=== PATIENT | male | born 2000 | race Caucasian/White ===

== ENCOUNTER 2021-06-10 15:28 | Emergency (ER) | payer BC, SELFPAY ==
--- NOTE | ~2021-06-10 | XR_ITS ---
XR chest 2V DATE: 06/10/2021 16:00 INDICATION: Shortness of breath, wheezing, cough for 3 weeks. History of asthma as a child. Smoker. TECHNIQUE: PA and lateral views COMPARISON: None FINDINGS: Normal heart size. Moderate bilateral hyperinflation. No pulmonary infiltrate or consolidation, pleural effusion or pulm onary vascular congestion or pneumothorax. Included skeletal structures are unremarkable. IMPRESSION: Moderate bilateral hyperinflation Reviewed, dictated and finalized at location A.
[2021-06-10 15:35] VITALS: BP 144/68; PULSE 101; RESP 12; TEMP 37.1; O2SAT 98
--- NOTE | 2021-06-10 15:35 | ED.URI ---
HPI - URI/Sore Throat General Chief Complaint: Upper Respiratory Infection Stated Complaint: breathing issues/congestion Time Seen by Provider: 06/10/21 15:36 Source: patient and RN notes reviewed Mode of arrival: ambulatory Limitations: no limitations History of Present Illness HPI Narrative: 21-year-old male presents to the [facility] with complaints of dry cough, wheezing, chest congestion for 2 to 3 weeks. Has a history of depression anxiety. Denies fevers. No chest pain or abdominal pain. No nausea vomiting or diarrhea. Related Data Home Medications Medication Instructions Recorded Confirmed bupropion HCl 150 mg PO QAM 06/10/21 06/10/21 cholecalciferol (vitamin D3) 25 mcg PO DAILY 06/10/21 06/10/21 [Vitamin D3] escitalopram oxalate mg 06/10/21 Allergies Allergy/AdvReac Type Severity Reaction Status Date / Time No Known Allergies Allergy Verified 06/10/21 15:37 Review of Systems Review of Systems: All systems reviewed & are unremarkable except as noted in HPI and below Constitutional: Constitutional: Reports no additional constitutional complaints, Denies chills and Denies fever(s) Eyes: Eyes: Reports no additional eye complaints ENT: Reports system reviewed and no additional complaints, except as documented Cardiovascular: Cardiovascular: Reports no additional cardiovascular complaints and Denies chest pain Respiratory: Respiratory: Reports as per HPI and Reports dyspnea Gastrointestinal: Gastrointestinal: Reports no additional gastrointestinal complaints, Denies abdominal pain, Denies diarrhea, Denies nausea and Denies vomiting Musculoskeletal: Musculoskeletal: Reports no additional musculoskeletal complaints and Denies back pain Integumentary/Breasts: Skin/Breast: Reports system reviewed and no additional complaints, except as docu Neurologic: Reports system reviewed and no additional complaints, except as documented Psychiatric: Psychiatric: Reports no additional psychiatric complaints Allergic/Immunologic: Allergic/Immunologic: Reports no additional allergic/immunologic complaints PMFSH Past Medical History Medical History (Updated 06/10/21 @ 16:32 by Charley Deal) Anxiety Surgical History Surgical History (Updated 06/10/21 @ 16:32 by Charley Deal) No significant past surgical history Comments At the time of my signature, I reviewed and agree with the nursing past medical, surgical, social, and family history. There is no relevant family history pertinent to the patient complaint. Exam Const: General: healthy appearing, no acute distress and alert Nutritional Appearance: well nourished Orientation/consciousness: patient oriented x3 Limitations: no limitations HENMT: Head: normal to inspection Eyes: Conjunctivae: conjunctivae normal Pupils: Equal, round and reactive pupils present Neck: Neck: normal visual inspection, no lymphadenopathy and no meningeal signs Chest: Chest palpation & inspection: normal inspection of the chest Resp: Effort & Inspection: normal respiratory effort Auscultation: rhonchi lower bilaterally and wheezes throughout Cardio: Rate: regular rate Rhythm: regular rhythm Back/Spine/Pelvis: Back: no CVA tenderness Skin: General skin exam: normal color Rashes: no rashes Wounds: no wounds Neuro: General: patient oriented x3, moves all extremities, no meningeal signs and no focal motor deficits Speech: normal speech Gait exam (Neuro): Normal gait present Extrem: General: normal to inspection and no pedal edema Psych: Appearance: grossly normal and well kempt Mental Status: mental status grossly normal Affect: normal affect Attitude: cooperative Thought content: Yes Normal thought content present Course Course Emergency Course: 1628 post breathing treatment. Patient states that he is feeling much better. Coarseness cleared, mild wheezing still noted, greatly decreased Discharge instructions reviewed with patient, as well as provi
[2021-06-10 15:39] VITALS: BP 144/68; PULSE 101; RESP 12; TEMP 37.1; O2SAT 98
[2021-06-10 15:42] VITALS: PULSE 74; RESP 18; O2SAT 97
[2021-06-10] MEDS: ALBUTEROL SULFATE NEB 2.5 MG/3 ML INH INHALATION (15:57)
[2021-06-10] MEDS: predniSONE 20 MG TABLET 40 MG PO (15:58)
[2021-06-10] MEDS: IPRATROPIUM BR 0.02% INH SOLN 0.5 MG/2.5 ML VIAL INHALATION (15:58)
[2021-06-10 16:40] VITALS: PULSE 74; RESP 16; O2SAT 96
== END 2021-06-10 16:40 | disposition home or self-care (01) ==
PROVIDERS: Emergency Provider Nurse Practitioner
DX: J40 Bronchitis, not specified as acute or chronic (principal); F41.9 Anxiety disorder, unspecified
CPT/HCPCS: 71046; 94640; 99213; G0463; J7512

== ENCOUNTER 2023-07-19 12:44 | Emergency (ER) | payer OTHER, SELFPAY ==
[2023-07-19 13:08] VITALS: BP 134/76; PULSE 103; RESP 16; TEMP 36.8; O2SAT 100
--- NOTE | 2023-07-19 13:43 | ED.ABDPAIN ---
HPI - Abdominal Pain General Chief Complaint: Abdominal Pain Stated Complaint: LOWER R ABD PAIN Time Seen by Provider: 07/19/23 13:37 Source: patient and RN notes reviewed Mode of arrival: ambulatory Limitations: no limitations History of Present Illness HPI narrative: Patient presents today complaining of right lower quadrant abdominal pain radiating to the periumbilical area since this morning with associated nausea. Denies vomiting, fever, diarrhea, or any additional symptoms. He currently rates his pain 5/10 and has tried no [id number] interventions prior to arrival. Related Data Home Medications Medication Instructions Recorded Confirmed No Home Medications 06/19/23 07/19/23 Allergies Allergy/AdvReac Type Severity Reaction Status Date / Time No Known Allergies Allergy Verified 07/19/23 13:07 Review of Systems Review of Systems: CONSTITUTIONAL: Denies body aches, fever, chills, or sweats. EYES: Denies visual changes, redness, or discharge. ENT: Denies rhinorrhea, congestion, sore throat, or otalgia. CARDIOVASCULAR: Denies chest pain, palpitations, or edema. RESPIRATORY: Denies cough or dyspnea. GASTROINTESTINAL: Denies vomiting, or diarrhea.+ abdominal pain, nausea GENITOURINARY: Denies dysuria or hematuria. SKIN: Denies rash, itching, or wounds. MUSCULOSKELETAL: Denies back pain, joint pain, or myalgia. NEUROLOGIC: Denies headache, numbness, tingling, or weakness. PSYCH: Denies depression or anxiety. [facility] Past Medical History Medical History Anxiety Rectal itching Surgical History Surgical History Hx of tonsillectomy No significant past surgical history Family History Family History Grandparent Cancer Mother Depression Grandparent Diabetes mellitus Social History Social History Smoking packs per day: 2 Smoking cigarettes per day: 40.0 Smoking status: Current every day smoker Tobacco type: cigarettes Smokeless tobacco user: chewing tobacco Alcohol intake: current Alcohol use details: once a month Substance use: current Substance use type: marijuana Other substance usage details: daily Lack of Transportation: No Lack of Food: Never True Current Housing: I Have Housing Concerned About Future Housing: No Difficulty Paying Gas/Electric Bills: No Difficulty Paying for Meds: No Currently Unemployed: No Education: Bachelor's Degree Difficulty w/ Childcare or Family Care: No Living arrangements: alone Spiritual care concerns: No Comments At time of signature, I have reviewed and agree with nursing past medical, surgical, social and family history unless otherwise noted. Please see nursing chart for further information. There is no relevant family history pertinent to the presenting complaint Exam Narrative: GENERAL: Well-appearing, well-nourished, and in no acute distress. HEAD: Normocephalic, atraumatic. EYES: EOMI. No redness or drainage. Conjunctivae normal. ENT: Mucous membranes pink and moist. NECK: Normal AROM. CHEST: No respiratory distress. Clear to auscultation. HEART: Regular rate and rhythm. No murmur appreciated. Normal peripheral pulses. ABDOMEN: Soft, nondistended, normal active bowel sounds. Right lower quadrant tenderness with guarding.+ heel jar EXTREMITIES: Normal range of motion. No edema. SKIN: Warm, dry, no rash. Capillary refill normal. Normal skin turgor. NEURO: No focal deficits. Alert and oriented x3. Gait steady. PSYCH: Normal affect. No signs of depression or anxiety. Course Course Level of Care: Express Care Visit Vital Signs Vital signs: Vital Signs Temperature 98.3 F 07/19/23 13:08 Pulse Rate 103 H 07/19/23 13:08 Respiratory Rate 16
== END 2023-07-19 13:50 | disposition short-term general hospital (02) ==
PROVIDERS: Emergency Provider Nurse Practitioner; PCP Clinical Nurse Specialist
DX: R10.31 Right lower quadrant pain (principal); F17.210 Nicotine dependence, cigarettes, uncomplicated
CPT/HCPCS: 96372; 99214; G0463; J1170; J2250; J3010

== ENCOUNTER 2023-07-19 14:41 | Day surgery (SDC) | payer OTHER, SELFPAY ==
[2023-07-19] VITALS (10 sets, daily range): BP systolic 117–155; BP diastolic 61–78; PULSE 61–95; RESP 12–24; TEMP 36.5–36.7; O2SAT 96–100
--- NOTE | ~2023-07-19 | CT_ITS ---
EXAMINATION: CT abdomen pelvis w con DATE: 07/19/2023 15:59 INDICATION: Right lower quadrant abdominal pain. TECHNIQUE: Computed tomography (CT) of the abdomen and pelvis was performed with 100 mL Omnipaque 350 intravenous contrast. Automated exposure control and iterative reconstruction technique were employe d. The dose-length product was 1133.06 mGy-cm. 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 No pleural effusion. The heart size is normal. No pericardial effusion. The live r, gallbladder, spleen, pancreas, adrenal glands, and kidneys are normal. There is an appendicolith i n the base of the appendix. The appendix is fluid-filled and dilated to 13 mm. There is fat stranding around the appendix. There are no pathologically enlarged lymph nodes. There is no free intraperiton eal fluid. There is mild thoracic and lumbar spondylosis. IMPRESSION: 1. Acute appendicitis. Reviewed, dictated and finalized at location E. IMPRESSION: 1. Acute appendicitis.
[2023-07-19] MEDS: SODIUM CHLORIDE 0.9% IV 1,000 ML 999 ML IV CONT (15:17)
[2023-07-19] MEDS: KETOROLAC 30 MG/ML VIAL (*BKC) IV PUSH (15:18)
[2023-07-19] MEDS: ONDANSETRON INJ 4 MG/2 ML VIAL IV PUSH (15:18)
[2023-07-19 15:24] LABS: Basophils Absolute Auto 0.1 K/mm3 (0.0-0.1); Basophils Percent Auto 0.4 % (0.2-1.2); Eosinophils Percent Auto 0.2 % (0-4.4); Hematocrit 48.2 % (42.0-52.0); Hemoglobin 16.1 g/dL (14.0-18.0); Immature Granulocyte Absolute 0.03 K/mm3 (0.00-0.031); Immature Granulocyte Percent A 0.2 % (0-0.5); Lymphocytes Absolute Auto 1.47 K/mm3 (0.9-3.2); Mean Corpuscular HGB Conc 33.4 g/dl (32-36); Mean Corpuscular Hemoglobin 29.8 pg (26-34); Mean Corpuscular Volume 89.3 fl (80-100); Mean Platelet Volume 10.8 fl (7.4-10.4); Monocytes Absolute Auto 0.6 K/mm3 (0.1-0.6); Monocytes Percent Auto 4.8 % (2.6-8.5); Neutrophils Absolute Auto 10.1 K/mm3 (1.3-6.7); Neutrophils Percent Auto 82.4 % (45.5-73.1); Platelet Count Result 203 k/mm3 (150-375); Red Cell Distribution Width 12.1 % (11.5-14.5); White Blood Count 12.3 K/mm3 (4.5-10.0)
[2023-07-19 15:26] LABS: Appearance Urine Clear (Clear); Bilirubin Urine Negative (Negative); Blood Urine Negative (Negative); Color Urine Yellow (Yellow); Glucose Urine UA Negative (Negative); Ketones Urine Negative (Negative); Leukocyte Esterase Ur Negative LEU/UL (Negative); Nitrate Urine Negative (Negative); Protein Urine Negative (Negative); Specific Grav Ur 1.005 (1.001-1.035); Urobilinogen Urine 0.2 mg/dL (<2.0)
[2023-07-19 15:38] LABS: Alanine Aminotransferase 108 U/L (6-50); Albumin Level 5.3 g/dL (3.5-5.1); Alkaline Phosphatase 45 U/L (38-126); Anion Gap 11 mmol/L (8-16); Aspartate Amino Transferase 55 U/L (17-59); Blood Urea Nitrogen 10 mg/dL (9-20); Calcium 10.4 mg/dL (8.4-10.2); Carbon Dioxide 26 mmol/L (22-30); Chloride 102 mmol/L (98-107); Estimated CRCL calculation 136 ml/min; Estimated Glomerular Filt Rate > 60; Glucose 95 mg/dL (65-110); Lipase 30 U/L (23-300); Potassium 3.8 mmol/L (3.4-5.0); Sodium 139 mmol/L (137-145)
[2023-07-19 15:46] LABS: Add Urine Microscopic? NO
--- NOTE | 2023-07-19 16:40 | ED.ABDPAIN ---
HPI - Abdominal Pain General Chief Complaint: Abdominal Pain Stated Complaint: abd pain Time Seen by Provider: 07/19/23 14:59 Source: patient and RN notes reviewed Mode of arrival: ambulatory Limitations: no limitations History of Present Illness HPI narrative: This is a 23 year old male who presents for evaluation of right lower abdominal pain. He states this morning he developed right lower abdominal pain. His pain has been constant and intermittently radiates across lower abdomen. He states pain is worse with walking and riding in car. He has nausea and decreased appetite. He denies fever or chills. He denies any urinary complaints. He has not taken any medication for pain. He went to [facility] and he was referred to ER for evaluation of appendicitis. MD elicited complaint: abdominal pain Onset (ago): day(s) (1) Location: RLQ Severity: moderate Related Data Allergies Allergy/AdvReac Type Severity Reaction Status Date / Time No Known Allergies Allergy Verified 07/19/23 13:07 Review of Systems Constitutional: Constitutional: Denies weakness Cardiovascular: Cardiovascular: Denies syncope, Denies rapid heart rate, Denies irregular heart rhythm, Denies leg edema and Denies dyspnea Respiratory: Respiratory: Denies chest congestion, Denies hemoptysis, Denies excessive phlegm production and Denies dyspnea Gastrointestinal: Gastrointestinal: Reports abdominal pain, Denies hematochezia, Denies diarrhea, Reports nausea and Denies vomiting Genitourinary: Genitourinary: Denies hematuria, Denies dysuria, Denies penile discharge and Denies testicular pain Musculoskeletal: Musculoskeletal: Denies joint swelling, Denies loss of height and Denies muscle weakness Neurologic: Denies syncope, Denies focal weakness and Denies weakness PMFSH Past Medical History Medical History Anxiety Rectal itching Surgical History Surgical History Hx of tonsillectomy No significant past surgical history Family History Family History Grandparent Cancer Mother Depression Grandparent Diabetes mellitus Social History Social History Smoking packs per day: 2 Smoking cigarettes per day: 40.0 Smoking status: Current every day smoker Tobacco type: cigarettes Smokeless tobacco user: chewing tobacco Alcohol intake: current Alcohol use details: once a month Substance use: current Substance use type: marijuana Other substance usage details: daily Lack of Transportation: No Lack of Food: Never True Current Housing: I Have Housing Concerned About Future Housing: No Difficulty Paying Gas/Electric Bills: No Difficulty Paying for Meds: No Currently Unemployed: No Education: Bachelor's Degree Difficulty w/ Childcare or Family Care: No Living arrangements: alone Spiritual care concerns: No Exam Narrative: GENERAL: Well-appearing, well-nourished, and in no acute distress. HEAD: Normocephalic, atraumatic EYES: EOMI, conjunctiva clear without discharge NOSE: Nares clear, no rhinorrhea or epistaxis THROAT:Mucous membranes moist, Oropharynx normal without erythema, exudate, peritonsillar swelling or fluctuance NECK: Supple, without lymphadenopathy or mass RESPIRATORY: No respiratory distress, Airway patent, Respirations non-labored, Clear to auscultation without rales, rhonchi or wheeze HEART: Regular rate and rhythm. No murmur heard. Normal peripheral pulses. ABDOMEN: Soft, TTP RLQ with guarding nondistended, normal active bowel sounds. No masses. , No organomegaly. EXTREMITIES: No edema, normal strength with full range of motion. SKIN: Warm, dry, normal color without rash NEURO: Alert and oriented x3. CN 2-12 grossly intact. No focal deficits. PSYCH: Normal
[2023-07-19] MEDS: PIPERACILLN/TAZ 3.375GM/NS50ML 3.375 GM/50 ML BAG IVPB (16:58)
--- NOTE | 2023-07-19 17:11 | PM.IMHP ---
H&P: [facility] History of Present Illness Date/Time: 07/19/23 17:11 Chief Complaint: Right lower quadrant pain Narrative: This is a 23-year-old man who presented to the emergency department this afternoon with right lower quadrant pain that started early this morning. He has never experienced any pain like this in the past. He denies any fevers or chills. He denies any change in bowel habits. He did have some nausea and dry heaves. Review of Systems Review of Systems: All systems reviewed & are unremarkable except as noted in HPI and below Eyes: Eyes: Denies change in vision ENT: Denies hearing loss, Denies neck pain and Denies sore throat Cardiovascular: Cardiovascular: Denies chest pain and Denies dyspnea Respiratory: Respiratory: Denies cough, Denies dyspnea and Denies wheezing Gastrointestinal: Gastrointestinal: Reports as per HPI Genitourinary: Genitourinary: Denies hematuria and Denies dysuria Musculoskeletal: Musculoskeletal: Denies arthralgias, Denies joint swelling and Denies neck pain Allergic/Immunologic: Allergic/Immunologic: Denies wheezing [facility] Past Medical History Medical History Anxiety Rectal itching Surgical History Surgical History Hx of tonsillectomy No significant past surgical history Family History Family History Grandparent Cancer Mother Depression Grandparent Diabetes mellitus Social History Social History Smoking packs per day: 2 Smoking cigarettes per day: 40.0 Smoking status: Current every day smoker Tobacco type: cigarettes Smokeless tobacco user: chewing tobacco Alcohol intake: current Alcohol use details: once a month Substance use: current Substance use type: marijuana Other substance usage details: daily Lack of Transportation: No Lack of Food: Never True Current Housing: I Have Housing Concerned About Future Housing: No Difficulty Paying Gas/Electric Bills: No Difficulty Paying for Meds: No Currently Unemployed: No Education: Bachelor's Degree Difficulty w/ Childcare or Family Care: No Living arrangements: alone Spiritual care concerns: No Meds Home Medications and Allergies Home Medications Medication Instructions Recorded Confirmed Type No Home Medications 06/19/23 07/19/23 History Allergies Allergy/AdvReac Type Severity Reaction Status Date / Time No Known Allergies Allergy Verified 07/19/23 13:07 Vital Signs Vital Signs - 24 hr 07/19/23 14:42 07/19/23 16:59 Temperature 36.5 C 36.7 C Pulse Rate 76 63 Respiratory Rate 16 18 Blood Pressure 155/71 H 140/78 Pulse Oximetry 100 98 Oxygen Delivery Room Air Exam Const: General: alert; No acute distress Orientation/consciousness: patient oriented x3 Limitations: no limitations HENMT: Head: normocephalic and atraumatic Ears: hearing grossly normal bilaterally Face/Nose/Sinus: Normal external nose present and Normal nares present Mouth: Yes Normal oral and palatal mucosa present and Yes moist mucous membranes Eyes: General: appearance normal, both eyes and all related structures Conjunctivae: conjunctivae normal Sclera: sclerae normal Pupils: Equal, round and reactive pupils present EOM: EOMs intact bilaterally Neck: Neck: normal visual inspection, full ROM, no lymphadenopathy, supple and no JVD Lymphatic: no lymphadenopathy noted Chest: Chest palpation & inspection: normal inspection of the chest Resp: Effort & Inspection: normal respiratory effort and able to speak in complete sentences Auscultation: clear to auscultation bilaterally Percussion: percussion normal Cardio: Jugular venous distension: no JVD Rate: regular rate Rhythm: regular rhythm Heart sounds: S1 normal heart sound prese
--- NOTE | 2023-07-19 17:20 | WPDHPUPDATE1 ---
History and Physical Update Update Date/Time: 07/19/23 17:20 History and Physical has been reviewed, including an updated exam of the patient. There are NO changes in the patient's condition. Risks, benefits, and alternatives have been discussed and questions answered. Patient agrees to proceed with procedure.
--- NOTE | 2023-07-19 17:25 | WPDANESEPPF ---
Anes - Initial Pre Proc Eval Procedure: Operation Date: 07/19/23 17:00 Proposed Procedures p Laparoscopic Appendectomy - Pepe Carbajal DO Date/Time: 07/19/23 17:25 Pre Op Diagnosis: abd pain Patient Data Age: 23 Gender: M Height: 1.75 m Weight: 108.86 kg Last Vital Signs Temp 36.7 C 07/19/23 16:59 Pulse 63 07/19/23 16:59 Resp 18 07/19/23 16:59 BP 140/78 07/19/23 16:59 Pulse Ox 98 07/19/23 16:59 O2 Del Method Room Air 07/19/23 14:42 Allergies Allergy/AdvReac Type Severity Reaction Status Date / Time No Known Allergies Allergy Verified 07/19/23 13:07 Home Medications Medication Instructions Recorded Confirmed Type No Home Medications 06/19/23 07/19/23 History Laboratory Tests 07/19/23 15:14 WBC 12.3 H K/mm3 (4.5-10.0) RBC 5.40 M/mm3 (4.6-6.20) Hgb 16.1 g/dL (14.0-18.0) Hct 48.2 % (42.0-52.0) MCV 89.3 fl (80-100) MCH 29.8 pg (26-34) MCHC 33.4 g/dl (32-36) RDW 12.1 % (11.5-14.5) Plt Count 203 k/mm3 (150-375) MPV 10.8 H fl (7.4-10.4) Immature Gran % (Auto) 0.2 % (0-0.5) Neut % (Auto) 82.4 H % (45.5-73.1) Lymph % (Auto) 12.0 L % (18.3-44.2) [place] % (Auto) 4.8 % (2.6-8.5) Eos % (Auto) 0.2 % (0-4.4) Baso % (Auto) 0.4 % (0.2-1.2) Lymph # (Auto) 1.47 K/mm3 (0.9-3.2) [place] # (Auto) 0.6 K/mm3 (0.1-0.6) Eos # (Auto) 0.0 K/mm3 (0-0.3) Baso # (Auto) 0.1 K/mm3 (0.0-0.1) Abs Immat Gran (auto) 0.03 K/mm3 (0.00-0.031) Absolute Neuts (auto) 10.1 H K/mm3 (1.3-6.7) Absolute Nucleated RBC 0.0 K/mm3 (0.0-0.012) Nucleated RBC % 0.0 % (0.0-0.2) Sodium 139 mmol/L (137-145) Potassium 3.8 mmol/L (3.4-5.0) Chloride 102 mmol/L (98-107) Carbon Dioxide 26 mmol/L (22-30) Anion Gap 11 mmol/L (8-16) BUN 10 mg/dL (9-20) Creatinine 0.90 mg/dL (0.7-1.3) Estim Creat Clear Calc 136 ml/min Estimated GFR > 60 (59 - ) Glucose 95 mg/dL (65-110) Calcium 10.4 H mg/dL (8.4-10.2) Total Bilirubin 1.0 mg/dL (0.2-1.3) AST 55 U/L (17-59) ALT 108 H U/L (6-50) Alkaline Phosphatase 45 U/L (38-126) Total Protein 9.0 H g/dL (6.3-8.2) Albumin 5.3 H g/dL (3.5-5.1) Lipase 30 U/L (23-300) Urine Color Yellow (Yellow) Urine Appearance Clear (Clear) Urine pH 7.0 (5.0-9.0) Ur Specific [place] 1.005 (1.001-1.035) Urine Protein Negative mg/dL (Negative) Urine Glucose (UA) Negative mg/dL (Negative) Urine Ketones Negative mg/dL (Negative) Ur Blood (Man) Negative (Negative) Urine Nitrate Negative (Negative) Urine Bilirubin Negative (Negative) Urine Urobilinogen 0.2 mg/dL (<2.0) Leukocyte Esterase Rfl Negative LAURA/UL (Negative) Patient hx anesthesia problems: none Family hx anesthesia problems: none Results Review: All pre-operative results and documents have been reviewed as part of the pre-operative evaluation. [facility] Past Medical History Medical History Anxiety Rectal itching Surgical History Surgical History Hx of tonsillectomy No significant past surgical history Family History Family History Grandparent Cancer Mother Depression Grandparent Diabetes mellitus Social History Social History Smoking packs per day: 2 Smoking cigarettes per day: 40.0 Smoking status: Current every day smoker Tobacco type: cigarettes Smokeless tobacco user: chewing tobacco Alcohol intake: current Alcohol use details: once a month Substance use: current Substance use type: marijuana Other substance usage details: daily Lack of Transportation: No [place]
[2023-07-19] MEDS: BUPIVACAINE/EPINEPHRINE 0.5% 50 ML VIAL INFILTRATE (18:06)
--- NOTE | 2023-07-19 18:14 | W.PM.PROC2 ---
Procedure Note - Detailed Date of Procedure 07/19/23 Pre-op Diagnosis Acute appendicitis Post-op Diagnosis Same Procedure Performed Laparoscopic appendectomy Surgeon Pepe Carbajal, DO Anesthesia General and Local (0.5% bupivicaine with epinephrine) Indications This is a 23-year-old man who presented to the emergency department this afternoon with right lower quadrant pain that started early this morning. He had never experienced any pain like this in the past. He denies any fevers or chills. In the emergency department he was noted to have an elevated white blood count and CT showed evidence of acute appendicitis. Discussions were made with the patient about treatment options and decision was made to proceed with laparoscopic appendectomy, possible open. Findings Laparoscopic appendectomy was performed. The appendix appeared dilated and inflamed, but there was no evidence of perforation or abscess. The base of the appendix appeared healthy and viable. The appendix was removed and sent to the lab for pathology. Description of Procedure Procedure as well as risks, benefits, and alternatives were explained to the patient. The patient agreed to proceed. Written consent was obtained and placed in chart prior to procedure. The patient was brought back to surgical suite. He was placed supine on operating table. Time-out was done to confirm the patient and procedure. The patient was then intubated by the Anesthesia Department. His abdomen was prepped and draped in sterile fashion using chlorhexidine prep. A 5 mm incision was made just to the left of the patient's umbilicus and a 5 mm Optiview trocar was advanced through the abdominal layers under direct visualization. Once inside the peritoneal cavity, carbon dioxide insufflation was used to create a pneumoperitoneum. The camera was inserted and the abdomen was inspected. No immediate abnormalities were identified. The patient was then placed in slight Trendelenburg position and rotated to the left. A 5 mm incision was made in the suprapubic region in midline and a 5 mm trocar was inserted under direct visualization. A 12 mm incision was made in the left lower quadrant and a 12 mm trocar was inserted under direct visualization. The right lower quadrant was carefully inspected. The cecum was identified and then this was traced back to the appendix. The appendix was identified and grasped at the mesoappendix and lifted anteriorly. Careful blunt dissection was carried out at the base of the appendix through the mesoappendix using a [place] grasper. An Endo-MOSHE 45 mm blue load stapler was then advanced across the base of the appendix and clamped and fired. A white reload was then clamped across the mesoappendix and fired. This freed up our appendix completely. It was then placed in an EndoCatch bag and removed through the left lower quadrant port. The staple lines were then inspected. Hemostasis appeared adequate and the staple lines appeared secure. The area was then irrigated with sterile saline. The pelvis was then carefully inspected and irrigated with sterile saline as well and the remainder of the abdomen was carefully inspected. The patient was then flattened out in bed. One final inspection was made around the abdominal cavity and no other abnormalities were seen. The left lower quadrant port was removed and a Natalio-Arian cone was used to approximate the fascia with an 0 Vicryl simple interrupted suture. The remaining ports were then removed under direct visualization. The camera was removed and the pneumoperitoneum was released. 0.5% bupivacaine with epinephrine was infiltrated locally around each of the incisions. The skin of the incisions was then approximated using 4-0 Monocryl subcuticular suture and Exofin glue was applied on top. The patient was then awakened from anesthesia, extubated, and transferred to Recovery. Estimated Blood Loss 5 Urine Output 300 Pathology Yes (A
[2023-07-19] MEDS: LACTATED RINGERS 1,000 ML 30 ML IV CONT (18:15)
[2023-07-19] MEDS: fentaNYL CITRATE INJ (*CRX) 100 MCG/2 ML VIAL 25 MCG IV PUSH ×2 (18:55→18:57)
[2023-07-19] MEDS: oxyCODONE HCL (*CRX) 5 MG TAB IR PO (19:30)
== END 2023-07-19 20:15 | disposition home or self-care (01) ==
LOC: ANHED 15:07 → ANHSURGERY 18:17
PROVIDERS: Emergency Provider General Practice; PCP Clinical Nurse Specialist; Visit Provider Surgery
PROC: 0DTJ4ZZ Resection of Appendix, Percutaneous Endoscopic Approach (ICD-10-PCS; CPT 44970; principal; 2023-07-19 17:00)
DX: K35.80 Unspecified acute appendicitis (principal); F41.9 Anxiety disorder, unspecified; D72.829 Elevated white blood cell count, unspecified; F17.210 Nicotine dependence, cigarettes, uncomplicated; F17.220 Nicotine dependence, chewing tobacco, uncomplicated; F12.90 Cannabis use, unspecified, uncomplicated; E66.9 Obesity, unspecified; Z68.35 Body mass index [BMI] 35.0-35.9, adult; R11.0 Nausea
CPT/HCPCS: 44970; 36415; 74177; 80053; 81003; 83690; 85025; 88304; 96361; 96372; 96374; 96375; 99285; A9270; J0330; J1100; J1170; J1885; J2250; J2405; J2543; J2704; J3010; J7030; J7120; Q9967